=== PATIENT | male | born 2000 | race Caucasian/White ===

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

== ENCOUNTER 2018-02-03 12:29 | Emergency (ER) | payer OTHER ==
[~2018-02-03] VITALS: Ht 175.3 cm; Wt 134.3 kg
[2018-02-03 12:34] VITALS: Ht 175.3 cm; Wt 134.3 kg
[2018-02-03 13:02] VITALS: BP 149/102
== END 2018-02-03 13:02 | disposition home or self-care (01) ==
LOC: ED 12:29
DX: H65.92 Unspecified nonsuppurative otitis media, left ear (principal); R05 Cough; J45.909 Unspecified asthma, uncomplicated; Z88.1 Allergy status to other antibiotic agents; Z98.890 Other specified postprocedural states

== ENCOUNTER 2019-04-20 19:11 | Emergency (ER) | payer MEDICAID ==
[~2019-04-20] VITALS: Ht 182.9 cm; Wt 142.9 kg
[2019-04-20 19:22] VITALS: BP 144/106; Ht 182.9 cm; Wt 142.9 kg
== END 2019-04-20 22:03 | disposition home or self-care (01) ==
LOC: ED 19:11
DX: J06.9 Acute upper respiratory infection, unspecified (principal); M54.6 Pain in thoracic spine; J45.909 Unspecified asthma, uncomplicated; Z98.890 Other specified postprocedural states; Z88.1 Allergy status to other antibiotic agents

== ENCOUNTER 2019-06-13 17:58 | Emergency (ER) | payer MEDICAID ==
[~2019-06-13] VITALS: Ht 180.3 cm; Wt 143.3 kg
[2019-06-13 18:11] VITALS: Ht 180.3 cm; Wt 143.3 kg
[2019-06-13 20:11] VITALS: BP 149/84
== END 2019-06-13 20:11 | disposition home or self-care (01) ==
LOC: ED 17:58
DX: H57.12 Ocular pain, left eye (principal); J45.909 Unspecified asthma, uncomplicated; Z98.890 Other specified postprocedural states; Z88.1 Allergy status to other antibiotic agents

== ENCOUNTER 2019-10-08 03:23 | Emergency (ER) | payer MEDICAID ==
[~2019-10-08] VITALS: Ht 170.2 cm; Wt 145.4 kg
[2019-10-08 03:28] VITALS: Ht 170.2 cm; Wt 145.4 kg
[2019-10-08 04:13] LABS: CALCIUM 8.6 mg/dL (8.5-10.1); CARBON DIOXIDE 26.4 mmol/L (21-32); CHLORIDE SERUM 101 mmol/L (98-107); CREATININE SERUM 1.1 mg/dL (0.7-1.3); GFR1 > 60 mL/min; GLUCOSE SERUM 127 mg/dL (74-106); POTASSIUM SERUM 3.8 mmol/L (3.5-5.1); SODIUM SERUM 137 mmol/L (136-145)
[2019-10-08 04:20] LABS: BASOPHIL % 0.6 % (0-2); RED CELL DISTRIBUTION WIDTH 13.8 % (11.5-14.5)
[2019-10-08 04:23] LABS: ALBUMIN 3.4 g/dL (3.4-5.0); ALKALINE PHOSPHATASE 106 U/L (46-116); ALT/SGPT 38 U/L (16-63); AST/SGOT 28 U/L (15-37); BILIRUBIN TOTAL 0.55 mg/dL (0.20-1.00); LIPASE 116 IU/L (73-393); TOTAL PROTEIN, SERUM 7.7 g/dL (6.4-8.2)
[2019-10-08 04:26] LABS: PLATELET COUNT 93 x10^3mcL (130-400)
[2019-10-08 05:31] VITALS: BP 123/79
== END 2019-10-08 05:31 | disposition home or self-care (01) ==
LOC: ED 03:23
PROVIDERS: Emergency Medicine
DX: K29.70 Gastritis, unspecified, without bleeding (principal); J45.909 Unspecified asthma, uncomplicated; Z88.1 Allergy status to other antibiotic agents
CPT/HCPCS: J2405; J7030

== ENCOUNTER 2019-10-10 17:53 | Emergency (ER) | payer MEDICAID ==
[~2019-10-10] VITALS: Ht 180.3 cm; Wt 140.2 kg
[2019-10-10 17:56] VITALS: Ht 180.3 cm; Wt 140.2 kg
[2019-10-10 19:38] VITALS: BP 160/83
== END 2019-10-10 19:38 | disposition home or self-care (01) ==
LOC: ED 17:53
DX: S46.912A Strain of unspecified muscle, fascia and tendon at shoulder and upper arm level, left arm, initial encounter (principal); J45.909 Unspecified asthma, uncomplicated; R03.0 Elevated blood-pressure reading, without diagnosis of hypertension; Z98.890 Other specified postprocedural states; Z88.1 Allergy status to other antibiotic agents; X58.XXXA Exposure to other specified factors, initial encounter; Y93.89 Activity, other specified; Y92.89 Other specified places as the place of occurrence of the external cause; Y99.8 Other external cause status

== ENCOUNTER 2019-10-24 19:30 | Emergency (ER) | payer MEDICAID ==
[~2019-10-24] VITALS: Ht 180.3 cm; Wt 136.1 kg
[2019-10-24 20:09] VITALS: BP 158/94; Ht 180.3 cm; Wt 136.1 kg
== END 2019-10-24 20:30 | disposition home or self-care (01) ==
LOC: ED 19:30
DX: S93.402A Sprain of unspecified ligament of left ankle, initial encounter (principal); J45.909 Unspecified asthma, uncomplicated; Z88.1 Allergy status to other antibiotic agents; Z95.2 Presence of prosthetic heart valve; X50.1XXA Overexertion from prolonged static or awkward postures, initial encounter; Y93.89 Activity, other specified; Y92.89 Other specified places as the place of occurrence of the external cause; Y99.8 Other external cause status
CPT/HCPCS: J1885

== ENCOUNTER 2019-11-13 18:36 | Emergency (ER) | payer MEDICAID ==
[~2019-11-13] VITALS: Ht 180.3 cm; Wt 132.2 kg
[2019-11-13 19:33] VITALS: Ht 180.3 cm; Wt 132.2 kg
[2019-11-13 21:04] VITALS: BP 139/83
== END 2019-11-13 21:04 | disposition home or self-care (01) ==
LOC: ED 18:36
DX: H66.91 Otitis media, unspecified, right ear (principal); R05 Cough; J45.909 Unspecified asthma, uncomplicated; Z98.890 Other specified postprocedural states; Z88.1 Allergy status to other antibiotic agents

== ENCOUNTER 2019-12-24 09:13 | Emergency (ER) | payer MEDICAID ==
[~2019-12-24] VITALS: Ht 180.3 cm; Wt 127.9 kg
[2019-12-24 09:28] VITALS: Ht 180.3 cm; Wt 127.9 kg
[2019-12-24 10:56] LABS: CALCIUM 9.4 mg/dL (8.5-10.1); CARBON DIOXIDE 28.1 mmol/L (21-32); CHLORIDE SERUM 104 mmol/L (98-107); GFR1 > 60 mL/min; GLUCOSE SERUM 84 mg/dL (74-106); POTASSIUM SERUM 3.8 mmol/L (3.5-5.1); SODIUM SERUM 140 mmol/L (136-145)
[2019-12-24 10:58] LABS: BASOPHIL % 0.8 % (0-2); PLATELET COUNT 238 x10^3mcL (130-400); RED CELL DISTRIBUTION WIDTH 14.5 % (11.5-14.5)
[2019-12-24 11:01] LABS: ALBUMIN 3.6 g/dL (3.4-5.0); ALKALINE PHOSPHATASE 80 U/L (46-116); ALT/SGPT 40 U/L (16-63); AST/SGOT 17 U/L (15-37)
[2019-12-24 11:40] VITALS: BP 112/79
== END 2019-12-24 11:40 | disposition home or self-care (01) ==
LOC: ED 09:13
PROVIDERS: Emergency Medicine
DX: R42 Dizziness and giddiness (principal); J45.909 Unspecified asthma, uncomplicated; Z76.0 Encounter for issue of repeat prescription; Z88.1 Allergy status to other antibiotic agents
CPT/HCPCS: 36415

== ENCOUNTER 2020-07-16 04:53 | Emergency (ER) | payer MEDICAID ==
[~2020-07-16] VITALS: Ht 175.3 cm; Wt 121.6 kg
[2020-07-16 05:01] VITALS: Ht 175.3 cm; Wt 121.6 kg
[2020-07-16 05:37] VITALS: BP 127/86
== END 2020-07-16 05:37 | disposition home or self-care (01) ==
LOC: ED 04:53
DX: H10.9 Unspecified conjunctivitis (principal); J45.909 Unspecified asthma, uncomplicated; Z88.1 Allergy status to other antibiotic agents

== ENCOUNTER 2020-08-21 04:20 | Emergency (ER) | payer MEDICAID ==
[~2020-08-21] VITALS: Ht 177.8 cm; Wt 99.8 kg
[2020-08-21 04:21] VITALS: Ht 177.8 cm; Wt 99.8 kg
[2020-08-21 05:36] LABS: BASOPHIL % 0.5 % (0-2); PLATELET COUNT 249 x10^3mcL (130-400); RED CELL DISTRIBUTION WIDTH 13.2 % (11.5-14.5)
[2020-08-21 05:49] LABS: CALCIUM 9.8 mg/dL (8.5-10.1); CARBON DIOXIDE 29.4 mmol/L (21-32); CHLORIDE SERUM 99 mmol/L (98-107); GFR1 > 60 mL/min; GLUCOSE SERUM 102 mg/dL (74-106); POTASSIUM SERUM 3.9 mmol/L (3.5-5.1); SODIUM SERUM 135 mmol/L (136-145)
[2020-08-21 05:54] LABS: ALBUMIN 3.7 g/dL (3.4-5.0); ALKALINE PHOSPHATASE 67 U/L (46-116); ALT/SGPT 22 U/L (16-63); AST/SGOT 14 U/L (15-37); BILIRUBIN TOTAL 1.22 mg/dL (0.20-1.00); LIPASE 158 IU/L (73-393); TOTAL PROTEIN, SERUM 7.8 g/dL (6.4-8.2)
[2020-08-21 06:44] VITALS: BP 116/82
== END 2020-08-21 06:44 | disposition home or self-care (01) ==
LOC: ED 04:20
PROVIDERS: Student in an Organized Health Care Education/Training Program
DX: K80.50 Calculus of bile duct without cholangitis or cholecystitis without obstruction (principal); K80.20 Calculus of gallbladder without cholecystitis without obstruction; J45.909 Unspecified asthma, uncomplicated; Z88.1 Allergy status to other antibiotic agents; Z98.890 Other specified postprocedural states
CPT/HCPCS: Q0092

== ENCOUNTER 2020-09-03 03:58 | Emergency (ER) | payer MEDICAID ==
[~2020-09-03] VITALS: Ht 180.3 cm; Wt 131.1 kg
[2020-09-03 04:12] VITALS: Ht 180.3 cm; Wt 131.1 kg
[2020-09-03 05:26] VITALS: BP 120/80
== END 2020-09-03 05:26 | disposition home or self-care (01) ==
LOC: ED 03:58
DX: K80.50 Calculus of bile duct without cholangitis or cholecystitis without obstruction (principal)
CPT/HCPCS: J1885; Q0162

== ENCOUNTER 2020-11-10 05:56 | Emergency (ER) | payer MEDICAID ==
[~2020-11-10] VITALS: Ht 180.3 cm; Wt 126.1 kg
[2020-11-10 09:13] LABS: PLATELET COUNT 254 x10^3mcL (152-348); RED CELL DISTRIBUTION WIDTH 13.6 % (12.1-16.2)
[2020-11-10 09:20] LABS: BASOPHIL % 2.7 % (0.2-1.5); rbc morphology (normal/abnorm) NORMAL (NORMAL)
[2020-11-10 09:49] LABS: CARBON DIOXIDE 25.4 mmol/L (21-32); CHLORIDE SERUM 104 mmol/L (98-107); CREATININE SERUM 0.9 mg/dL (0.7-1.3); GFR1 > 60 mL/min; GLUCOSE SERUM 92 mg/dL (74-106); POTASSIUM SERUM 3.8 mmol/L (3.5-5.1); SODIUM SERUM 139 mmol/L (136-145)
[2020-11-10 09:53] LABS: ALBUMIN 3.7 g/dL (3.4-5.0); ALKALINE PHOSPHATASE 67 U/L (46-116); ALT/SGPT 22 U/L (16-63); AST/SGOT 10 U/L (15-37); BILIRUBIN TOTAL 0.76 mg/dL (0.20-1.00); LIPASE 154 IU/L (73-393); TOTAL PROTEIN, SERUM 7.6 g/dL (6.4-8.2)
[2020-11-10 09:56] LABS: CHOLESTEROL 129 mg/dL (<200); HDL CHOLESTEROL 26 mg/dL (40-60); TRIGLYCERIDES 209 mg/dL (<150)
[2020-11-10 11:01] VITALS: BP 116/88
== END 2020-11-10 11:01 | disposition home or self-care (01) ==
LOC: ED 05:56
PROVIDERS: Specialist
DX: R07.89 Other chest pain (principal); M54.9 Dorsalgia, unspecified; J45.909 Unspecified asthma, uncomplicated; Z98.890 Other specified postprocedural states; Z88.1 Allergy status to other antibiotic agents
CPT/HCPCS: 83880

== ENCOUNTER 2020-11-14 11:52 | Emergency (ER) | payer MEDICAID ==
[~2020-11-14] VITALS: Ht 180.3 cm; Wt 124.3 kg
[2020-11-14 12:01] VITALS: Ht 180.3 cm; Wt 124.3 kg
[2020-11-14 12:40] LABS: microscopic required? NO
[2020-11-14 12:45] LABS: UA SPECIFIC GRAVITY 1.015 (1.005-1.035); urine erythrocyte NEGATIVE (NEGATIVE)
[2020-11-14 12:48] LABS: BASOPHIL % 0.6 % (0.2-1.5); PLATELET COUNT 267 x10^3mcL (152-348); RED CELL DISTRIBUTION WIDTH 13.9 % (12.1-16.2)
[2020-11-14 13:19] LABS: CALCIUM 9.8 mg/dL (8.5-10.1); CARBON DIOXIDE 29.9 mmol/L (21-32); CHLORIDE SERUM 103 mmol/L (98-107); CREATININE SERUM 1.1 mg/dL (0.7-1.3); GFR1 > 60 mL/min; GLUCOSE SERUM 79 mg/dL (74-106); POTASSIUM SERUM 3.9 mmol/L (3.5-5.1); SODIUM SERUM 143 mmol/L (136-145)
[2020-11-14 13:23] LABS: ALBUMIN 4.2 g/dL (3.4-5.0); ALKALINE PHOSPHATASE 89 U/L (46-116); ALT/SGPT 22 U/L (16-63); AST/SGOT 15 U/L (15-37); BILIRUBIN TOTAL 1.3 mg/dL (0.20-1.00); LIPASE 132 IU/L (73-393); TOTAL PROTEIN, SERUM 8.2 g/dL (6.4-8.2)
[2020-11-14 14:47] VITALS: BP 113/73
== END 2020-11-14 14:47 | disposition home or self-care (01) ==
LOC: ED 11:52
PROVIDERS: Emergency Medicine
DX: K80.20 Calculus of gallbladder without cholecystitis without obstruction (principal); J45.909 Unspecified asthma, uncomplicated; E66.9 Obesity, unspecified; Z88.1 Allergy status to other antibiotic agents
CPT/HCPCS: J1885; J2405

== ENCOUNTER 2020-12-21 07:06 | Emergency (ER) | payer OTHER ==
[~2020-12-21] VITALS: Ht 177.8 cm; Wt 125.2 kg
[2020-12-21 07:15] VITALS: Ht 177.8 cm; Wt 125.2 kg
[2020-12-21 08:22] LABS: PLATELET COUNT 216 x10^3mcL (152-348); RED CELL DISTRIBUTION WIDTH 14.3 % (12.1-16.2)
[2020-12-21 08:45] LABS: BASOPHIL % 3.3 % (0.2-1.5)
[2020-12-21 08:50] LABS: CARBON DIOXIDE 28.4 mmol/L (21-32); CHLORIDE SERUM 103 mmol/L (98-107); CREATININE SERUM 1.1 mg/dL (0.7-1.3); GFR1 > 60 mL/min; GLUCOSE SERUM 107 mg/dL (74-106); POTASSIUM SERUM 3.5 mmol/L (3.5-5.1); SODIUM SERUM 140 mmol/L (136-145)
[2020-12-21 08:54] LABS: ALBUMIN 3.7 g/dL (3.4-5.0); ALKALINE PHOSPHATASE 70 U/L (46-116); ALT/SGPT 59 U/L (16-63); AMYLASE 64 U/L (25-115); AST/SGOT 38 U/L (15-37); BILIRUBIN TOTAL 0.6 mg/dL (0.20-1.00); LIPASE 159 IU/L (73-393); TOTAL PROTEIN, SERUM 7.4 g/dL (6.4-8.2)
[2020-12-21] MEDS ORDERED: ACETAMINOPHEN-H1 TA1 PO (09:33)
[2020-12-21 11:02] VITALS: BP 141/91
== END 2020-12-21 11:02 | disposition home or self-care (01) ==
LOC: ED 07:06
PROVIDERS: Emergency Medicine
DX: K80.50 Calculus of bile duct without cholangitis or cholecystitis without obstruction (principal); J45.909 Unspecified asthma, uncomplicated; E66.09 Other obesity due to excess calories; Z88.1 Allergy status to other antibiotic agents
CPT/HCPCS: J1885; J2270; Q0162